=== PATIENT | female | born 1990 | race Caucasian/White ===

== ENCOUNTER 2022-07-21 08:47 | Inpatient (IN) | payer OTHER, SELFPAY ==
[2022-07-21] VITALS (8 sets, daily range): BP systolic 122–157; BP diastolic 80–97; PULSE 83–100; RESP 16–18; TEMP 36.6–37.2; O2SAT 95–98; BMI 49.9
--- NOTE | 2022-07-21 09:01 | ED_ITS ---
HPI - Psych General Chief Complaint: Psychiatric Symptoms Stated Complaint: SEC 12,IRRATIC BEHAVIOR,SEEN IN COMM BY [facility] Time Seen by Provider: 07/21/22 09:00 Source: patient, EMS and other Mode of arrival: EMS History of Present Illness HPI Narrative: 31-year-old female with unknown medical and psychiatric history presents to the ER from [facility] office, on a Section 12 inpatient psychiatric bed search. [facility] called to report her section 12 includes delusional, erratic, bizarre behavior, fleeting thoughts, psychosis with history of unspecified schizophrenia and other psychiatric disorders.? She is difficult to obtain a history from. She is tearful but will not elaborate why she is here. Onset (ago): unknown Relieving factors: none Exacerbating factors: none Associated symptoms: denies other symptoms Treatments prior to arrival: placed on mental health hold Related Data Allergies Allergy/AdvReac Type Severity Reaction Status Date / Time hydroxychloroquine Allergy Unknown Verified 07/21/22 09:46 seafood Allergy Unknown Uncoded 07/21/22 09:46 Review of Systems Review of Systems: Yes Unobtainable due to mental condition and Unobtainable due to mental status [facility] Social History Social History (System 07/21/22 @ 09:46 by Elvia Youssef) Advance Directives: No Physical Exam Vital Signs: Vital Signs: Last Vital Signs Temp 98.3 F 07/21/22 09:08 Pulse 88 07/21/22 09:08 Resp 16 07/21/22 09:08 BP 122/83 07/21/22 09:08 Pulse Ox 88 L 07/21/22 09:08 O2 Del Method 07/21/22 09:08 BMI result Body Mass Index 49.9 Appearance: Alert. Oriented X3. No acute distress. Eyes: Pupils equal, round and reactive to light. ENT: Pharynx normal. Neck: Normal inspection. Neck supple. CVS: Normal heart rate and rhythm. Pulses normal. Respiratory: No respiratory distress. Breath sounds normal. Abdomen: Obese, Soft and nontender. +BS x4 Skin: Skin warm and dry. Normal skin color. Normal skin turgor. No rashes. Extremities: No lower extremity edema. Neuro/psych: Oriented X 3. No motor deficit. No sensory deficit. CN II-XII grossly intact. steady gait. makes brief eye contact, tearful, does not answer questions appropriately. stares off into space. Course Course Course Narrative: 31-year-old female with a history of unspecified schizophrenia in the past per N presents to the ER on a section 12 inpatient bed search from the community. Unable to get an accurate history on the patient. She appears to be in acute psychosis. She will require inpatient admission. Basic medical workup ordered with plans to admit once medically cleared. Reevaluation(s) Reevaluation #1: Urinalysis is negative for infection and . U tox is negative. Declining blood work at this time. Will plan to admit for psychiatric care. Medical Decision Making Lab Data Labs: Lab Results 07/21/22 07/21/22 07/21/22 Range/Units 09:41 10:06 10:06 Urine Color Yellow Urine Appearance Clear Urine pH 6.0 (5.0-9.0) Ur Specific [place] <= 1.005 (1.005-1.025) Urine Protein Negative (Neg-Trace) mg/dL Urine Glucose (UA) Negative (Negative) mg/dL Urine Ketones Negative (Negative) mg/dL Urine Blood Negative (Negative) Urine Nitrite Negative (Negative) Ur Leukocyte Esterase Negative (Negative) Urine Test NEGATIVE (NEGATIVE) Urine Opiates Screen (Not Detect) Urine Fentanyl Screen (Not Detect) Ur Barbiturates Screen (Not Detect) Ur Phencyclidine Scrn (Not Detect) Ur Amphetamines Screen (Not Detect) U Benzodiazepines Scrn (Not Detect) Urine Cocaine Screen (Not Detect) U Marijuana (THC) Screen (Not Detect) Influenza Type A (PCR) NEGATIVE (Negative) Influenza Type B (PCR) NEGATIVE (Negative) RSV RNA Qual (PCR) NEGATIVE (Negative) SARS-CoV-2 RNA (RT-PCR) NEGATIVE (Negative) 07/21/22 Range/Units 10:06 Urine Color Urine Appearance Urine pH (5.0-9.0) Ur Specific [place] (1.005-1.025) Urine Protein (Neg-Trace) mg/dL Urine Glucose (UA) (Negative) mg/dL Urine Ketones (Negative) mg/dL Urine Blood (Negative) Urine Nitrite (Negative) Ur Leukocyte Esterase (Negative) Urine Test (NEGATIVE) Urine Opiates Screen Not Detected (Not Detect) Urine Fentanyl Screen Not Detected (Not Detect) Ur Barbiturates Screen Not Detected (Not Detect) Ur Phencyclidine Scrn Not Detected (Not Detect) Ur Amphetamines Screen Not Detected (Not Detect) U Benzodiazepines Scrn Not Detected (Not Detect) Urine Cocaine Screen Not Detected (Not Detect) U Marijuana (THC) Screen Not Detected (Not Detect) Influenza Type A (PCR) (Negative) Influenza Type B (PCR) (Negative) RSV RNA Qual (PCR) (Negative) SARS-CoV-2 RNA (RT-PCR) (Negative) Discharge Plan Discharge Clinical Impression: Acute psychosis Patient Disposition: Admitted As Inpatient
--- NOTE | 2022-07-21 09:25 | PC.NURSE ---
PT WITH SKIN RASH ON PALMS OF HANDS AND SHINS
[2022-07-21 10:19] LABS: UPreg QC Valid YES; Urine Pregnancy NEGATIVE (NEGATIVE)
[2022-07-21 10:20] LABS: Appearance Urine Clear; Color Urine Yellow; Glucose Urine UA Negative (Negative); Leukocyte Esterase Urine Negative (Negative); Nitrite Urine Negative (Negative); Specific Gravity - Urine <= 1.005 (1.005-1.025); Urine Blood Negative (Negative); Urine Ketones Negative (Negative); Urine Protein Negative (Neg-Trace)
[2022-07-21 10:31] LABS: Amphetamine Screen Urine Not Detected (Not Detect); Barbiturates, Urine Not Detected (Not Detect); Benzodiazepines Screen Urine Not Detected (Not Detect); Cannabinoid Screen Urine Not Detected (Not Detect); Cocaine Screen Urine Not Detected (Not Detect); Fentanyl, urine Not Detected (Not Detect); Opiate Screen Urine Not Detected (Not Detect); Phencyclidine Screen Urine Not Detected (Not Detect)
[2022-07-21 10:34] LABS: Influenza A PCR NEGATIVE (Negative); Influenza B PCR NEGATIVE (Negative); Resp Syncy Virus RNA Qual PCR NEGATIVE (Negative); SARS COV2 PCR INHOUSE NEGATIVE (Negative)
--- NOTE | 2022-07-21 11:23 | PC.NURSE ---
PT IS ASKING FOR A DIAPER, WALKING AROUND POD WITH BLANKET OVER HER HEAD. KEEPS ASKING IF DIANE HAS CALLED REPETITIVELY.
--- NOTE | 2022-07-21 12:35 | PC.NURSE ---
PT GOES FROM PERIODS OF CRYING TO BEING OVERACTIVE AND HYPER VERBAL.
[2022-07-21] MEDS: OLANZapine 5 MG TABLET PO (12:54)
--- NOTE | 2022-07-21 12:56 | PC.NURSE ---
THROWING THINGS REFUSING TO TAKE MEDICATIONS NOT BEING COOPERATIVE.
[2022-07-21] MEDS: LORazepam 2 MG/ML VIAL IM (13:54)
[2022-07-21] MEDS: Haloperidol Lactate 5 MG/ML VIAL IM (13:55)
--- NOTE | 2022-07-21 14:29 | PC.NURSE ---
1355 PT AGITATED DELUSIONAL UNCOOPERATIVE GETTING INCREASINGLY AGGRESSIVE MANIC NEEDED IM MEDICATIONS 1430 PT CALM COOPERATIVE AND IN ROOM AT THIS TIME
--- NOTE | 2022-07-21 15:15 | PC.NURSE ---
Pt restrained chemicially prior to t/w taking report. Pt currently sleeping, resp reg and even. NAD.
--- NOTE | 2022-07-21 15:18 | PC.NURSE ---
Plan to re-attempt blood draw when pt awakens.
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
--- NOTE | 2022-07-21 22:21 | PC.NURSE ---
Will need to complete safety tool in the morning.
[2022-07-22 08:30] VITALS: BP 111/60; PULSE 92; TEMP 37
[2022-07-22 08:34] LABS: MANUAL DIFF FLAG NO
[2022-07-22 08:36] LABS: Basophils Percent Auto 0.4 % (0-2); Eosinophils Absolute Auto 0.2 X10*3/uL (0.0-0.4); Eosinophils Percent Auto 2.1 % (0-4); Hemoglobin 11.1 g/dl (12.0-16.0); Imm Gran Abs Auto 0.04 X10*3/uL (0.00-0.03); Imm Gran Pct Auto 0.4 % (0.0-0.4); Lymphocytes Absolute Auto 2.3 X10*3/uL (1.2-4.9); Lymphocytes Percent Auto 20.6 % (20-40); Mean Corpuscular HGB Conc 30.8 g/dl (31.0-35.0); Mean Corpuscular Hemoglobin 23.8 pg (27.0-33.0); Mean Corpuscular Volume 77.1 fL (80.0-98.0); Mean Platelet Volume 11.6 fL (9.4-12.3); Monocytes Absolute Auto 0.7 X10*3/uL (0.1-1.2); Monocytes Percent Auto 6.2 % (2-11); Neutrophils Absolute Auto 7.9 x10*3/uL (2.0-8.3); Neutrophils Percent Auto 70.3 % (45-73); Platelet Count 286 X10*3/uL (160-400); Red Blood Count 4.67 X10*6/uL (4.20-5.50); Red Cell Distribution Width 15.4 % (11.0-16.0); White Blood Count 11.2 X10*3/uL (4.8-10.8)
[2022-07-22 08:58] LABS: Estimated Average Glucose 103 mg/dL; Hemoglobin A1c % 5.2 %
[2022-07-22 09:07] LABS: Alanine Aminotransferase 18 U/L (0-31); Albumin Level 4.1 g/dL (3.5-5.0); Alkaline Phosphatase 79 U/L (39-117); Anion Gap 13 (12-20); Aspartate Amino Transferase 15 U/L (5-31); Blood Urea Nitrogen 10 mg/dL (9-16); Calcium 8.8 mg/dL (8.4-10.2); Carbon Dioxide 25 mmol/L (22-29); Chloride 106 mmol/L (96-108); Cholesterol 173 mg/dL; Creatinine Clr Calc Pharmacy 139.9; Estimated Glomerular Filt Rate > 60; Glucose Fasting 93 mg/dL (60-99); HDL Cholesterol 27 mg/dL; LDL Cholesterol Calculated 118 mg/dl; Potassium 4.4 mmol/L (3.3-5.1); Sodium 140 mmol/L (135-145); Total Protein 7.4 g/dL (6.5-8.0); Triglycerides 144 mg/dL
[2022-07-22 09:12] LABS: Bilirubin Total 0.9 mg/dL (0.0-1.0)
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
[2022-07-22 18:00] VITALS: BP 127/75; PULSE 82; TEMP 36.2; O2SAT 99
--- NOTE | 2022-07-22 20:01 | HO.PM.IMCN ---
History of Present Illness Data of Consult Service Date: 07/22/22 Primary Care Provider: Unknown Physician HPI Reason for consult: Lesions on hands, legs, feet Pt is a 31-year-old female with a PMH significant for unspecified schizophrenia and psoriasis who is seen for complaints of lesions on her hands, legs, feet, and torso. Pt states she was diagnosed with psoriasis years ago and originally on Humira but switched to Enbrel. Pt has not seen her ruling machine feeder for at least a couple of years, since before COVID. Current lesions have been particularly bothered her for the past few weeks. Pt notes one lesion on her right suprapubic region filled will pus a couple of weeks ago and started draining. Notes her lesions can be pruritic, particularly if she starts itching them. Has intermittently, but not consistently, tried lotion on her hands are feet which has helped some. Pt denies F/C, N/V. No chest pain/pressure, SOB. Review of Systems Review of Systems: Multiple lesions on hands, feet, and torso, occasionally pruritic Abscess on right suprapubic region that was draining clear fluid a few weeks ago No [facility], [facility] Medical History Post traumatic stress disorder (PTSD) Social History Household Members: Family and Children Do you presently have visiting nurse or other home services: No Unable to assess alcohol history related to: Unknown Patient Tobacco Use Status: Never used Tobacco Smoked in Last 30 Days: No e-Cigarette/Vaping Use: Former Use Patient Interested in Nicotine Replacement: No (Pt refused) Patient Given Instructions on How to Stop Smoking: No Use of substances other than those prescribed or required for medical reasons: Yes Substance Use Type: Marijuana Substance Use Frequency: Occasionally Currently Displaying Signs/Symptoms of Drug Intoxication Withdrawal: No Any prior treatment program specific to substance use: No Have you been hit, kicked, punched, or otherwise hurt by someone within the past year? If so, by whom?: No Do you feel safe in your current relationship?: No Current Relationship Is there a partner from a previous relationship who is making you feel unsafe now?: No Are you made to feel afraid or neglected: No Advance Directives: No Do you have thoughts of harming others: None Do you have a plan to hurt others: No Plan Recently lost weight without trying: No Patient : No : No Meds Allergies Allergy/AdvReac Type Severity Reaction Status Date / Time hydroxychloroquine Allergy Unknown Verified 07/21/22 09:46 seafood Allergy Unknown Uncoded 07/21/22 09:46 Active Medications: Current Medications Acetaminophen (Acetaminophen 325 Mg Tablet) 650 mg PO Q6H PRN PRN Reason: Headache/Pain Mild Scale (1-3) Al Hydroxide/Mg Hydroxide (Magnesium Hydrox/Alum Hydrox 30 Ml Oral.Susp) 30 ml PO Q6H PRN PRN Reason: Heartburn/Nausea Diphenhydramine HCl (Diphenhydramine Hcl 25 Mg Capsule) 50 mg PO Q4H PRN PRN Reason: agitation Haloperidol (Haloperidol 5 Mg Tablet) 5 mg PO Q4H PRN PRN Reason: agitation Hydroxyzine HCl (Hydroxyzine Hcl 25 Mg Tablet) 25 mg PO Q6H PRN PRN Reason: Anxiety Levothyroxine Sodium (Levothyroxine Sodium 112 Mcg Tablet) 112 mcg PO DAILY@0600 CLIFF Lorazepam (Lorazepam 1 Mg Tablet) 2 mg PO Q4H PRN PRN Reason: agitation Magnesium Hydroxide (Milk Of Magnesia 30 Ml Oral.Susp) 30 ml PO DAILY PRN PRN Reason: Constipation Nicotine Polacrilex (Nicotine Polacrilex 2 Mg Gum) 4 mg BUCCAL Q2H PRN PRN Reason: Nicotine Cravings Trazodone HCl (Trazodone Hcl 50 Mg Tablet) 50 mg PO BEDTIME PRN PRN Reason: Insomnia Physical Exam Vital Signs and Narrative: Vital Signs: Last Vital Signs Temp 98.6 F 07/22/22 08:30 Pulse 92 07/22/22 08:30 Resp 17 07/21/22 20:20 BP 111/60 07/22/22 08:30 Pulse Ox 95 07/21/22 20:20 O2 Del Method 07/21/22 20:20 BMI result Body Mass Index 49.9 Constitutional: Alert, in no acute distress. Mental Status: Oriented to person, place and time. Eyes: Pupils are equal, round, and reactive to light. Ear, Nose, and Throat: Oropharynx clear, mucous membranes moist. Ears and nose without deformities. Trachea midline. Respiratory: Clear to auscultation bilaterally. No wheezing, rales, or rhonchi. Cardiovascular: S1, S2 regular. No murmurs, rubs, or gallops. Gastrointestinal: Abdomen soft, non-tender, non-distended. Normal bowel sounds. Neurologic: Cranial nerves II-XI are grossly intact. No focal neurological deficits. Moves all extremities spontaneously. Skin: Multiple psoriatic outbreaks -- on back, stomach, extensor surfaces of elbows, palms of hands, feet. 7mm lesion on right suprapubic region with underlying induration, healed over. No erythema, warmth, or drainage. Musculoskeletal: No cyanosis or clubbing. Extremities: No edema. Psychiatric: Normal mood and affect. Results Labs CBC and Chem 7: 07/22/22 08:07/22/22 08:27 Labs: Laboratory Results - last 24 hr 07/22/22 07/22/22 07/22/22 08:27 08:27 08:27 MCV 77.1 L MCH 23.8 L MCHC 30.8 L RDW 15.4 Plt Count 286 MPV 11.6 Immature Gran % (Auto) 0.4 Neut % (Auto) 70.3 Lymph % (Auto) 20.6 [place] % (Auto) 6.2 Eos % (Auto) 2.1 Baso % (Auto) 0.4 Lymph # (Auto) 2.3 [place] # (Auto) 0.7 Eos # (Auto) 0.2 Baso # (Auto) 0.0 Abs Immat Gran (auto) 0.04 H Absolute Neuts (auto) 7.9 Absolute Nucleated RBC 0.000 Nucleated RBC % (auto) 0.0 Anion Gap 13 Estim Creat Clear Calc 139.9 Estimated GFR > 60 Fasting Glucose 93 Estimat Average Glucose 103 Hemoglobin A1c % 5.2 Calcium 8.8 Total Bilirubin 0.9 AST 15 ALT 18 Alkaline Phosphatase 79 Total Protein 7.4 Albumin 4.1 Triglycerides 144 Cholesterol 173 LDL Cholesterol, Calc 118 HDL Cholesterol 27 Assessment and Plan (1) Psoriasis: Status: Acute Plan Pt is a 31-year-old female with a PMH significant for unspecified schizophrenia and psoriasis who is seen for complaints of lesions on her hands, legs, feet, and torso. # psoriasis -- pt has a history of psoriasis, hasn't seen PCP/ruling machine feeder since before COVID -- was on Humira but changed to Enbrel; hasn't taken any treatments for over two years -- pt's outbreak is too widespread for topicals; biologics indicated, which need a specialist to prescribe -- Eucerin bid to affected areas, especially hands and feet which are dry and cracked -- f/u with ruling machine feeder outpatient to reestablish psoriasis care # abscess of suprapubic area, resolved -- area no longer draining, no erythema, no obvious sign of infection; healed over -- no fluctuance, no need for I&D -- pt to monitor and contact us if fills with pus/starts draining again # leukocytosis -- WBC mildly elevated at 11.2 -- no obvious source of infection -- possibly secodary to psoriasis outbreak Thank you for allowing me to participate in the care of this patient. Please let me know if there are any future questions or concerns. Time Spent With Patient Time: Total time managing care of this patient today ____ minutes.
[2022-07-22] MEDS: Nicotine Polacrilex 2 MG GUM 4 MG BUCCAL (23:21)
[2022-07-23] MEDS: Levothyroxine Sodium 112 MCG TABLET PO (05:21)
[2022-07-23 08:52] VITALS: BP 128/59; PULSE 86; TEMP 36.6
[2022-07-23] MEDS: LORazepam 1 MG TABLET 2 MG PO (11:03)
[2022-07-23] MEDS: Mineral Oil/Petrolatum,White 106 GM Tube 1 APPL TOPICAL ×2 (11:42→22:16)
[2022-07-23] MEDS: HaloperidoL 5 MG TABLET PO (12:08)
--- NOTE | 2022-07-23 12:09 | PC.NURSE ---
pt given Ativan 2mg in separate doses, initially accepted only 1mg, then later accepted the other mg along with Haldol, all PO for agitation prn
--- NOTE | 2022-07-23 16:29 | HO.PSYCHPN ---
Subjective Subjective Date of Service: 07/23/22 Reason For Visit: disorganized Interim History: Discussed her concerns about the changes she perceives in her child and her child's response to her. Describes feeling pulled in many different directions. Discussed how she deals with conflict. Medication Compliance: Yes Side effects from medications: No Attending Groups: Intermittent Review of Systems Acute medical concerns: No Medical Review of Systems: unchanged Mental Status Exam Mental Status Exam Narrative: Pt is alert and oriented; behavior is cooperative, friendly and calm; patient is not in distress; dressed in casual attire with unkempt hair but adequate hygiene; mood is described as ok and affect anxious; eye contact appropriate; Speech is normal rate, volume and prosody and not pressured; no psychomotor agitation/retardation present; thought process is goal directed; Thought content is on why she's in hospital; otherwise pertinent to relevant topics; some paranoid thinking; denies any SI/HI or any hx of attempt. Denies AVH; Patients insight and judgment are impaired. Diagnostics Vital Signs (24Hr): Vital Signs - 24 hr 07/22/22 18:00 07/23/22 08:52 Temperature 97.1 F 97.8 F Pulse Rate 82 86 Blood Pressure 127/75 128/59 L Pulse Oximetry 99 Oxygen Delivery Method Room Air BMI result Body Mass Index 49.9 Labs Results: 07/22/22 08:27 07/22/22 08:27 Labs: Laboratory Results - last 48 hr 07/22/22 07/22/22 07/22/22 08:27 08:27 08:27 WBC 11.2 H RBC 4.67 Hgb 11.1 L Hct 36.0 L MCV 77.1 L MCH 23.8 L MCHC 30.8 L RDW 15.4 Plt Count 286 MPV 11.6 Immature Gran % (Auto) 0.4 Neut % (Auto) 70.3 Lymph % (Auto) 20.6 [place]he % (Auto) 6.2 Eos % (Auto) 2.1 Baso % (Auto) 0.4 Lymph # (Auto) 2.3 [place]he # (Auto) 0.7 Eos # (Auto) 0.2 Baso # (Auto) 0.0 Abs Immat Gran (auto) 0.04 H Absolute Neuts (auto) 7.9 Absolute Nucleated RBC 0.000 Nucleated RBC % (auto) 0.0 Sodium 140 Potassium 4.4 Chloride 106 Carbon Dioxide 25 Anion Gap 13 BUN 10 Creatinine 0.83 Estim Creat Clear Calc 139.9 Estimated GFR > 60 Fasting Glucose 93 Estimat Average Glucose 103 Hemoglobin A1c % 5.2 Calcium 8.8 Total Bilirubin 0.9 AST 15 ALT 18 Alkaline Phosphatase 79 Total Protein 7.4 Albumin 4.1 Triglycerides 144 Cholesterol 173 LDL Cholesterol, Calc 118 HDL Cholesterol 27 Medications Medications Current Medications Acetaminophen (Acetaminophen 325 Mg Tablet) 650 mg PO Q6H PRN PRN Reason: Headache/Pain Mild Scale (1-3) Al Hydroxide/Mg Hydroxide (Magnesium Hydrox/Alum Hydrox 30 Ml Oral.Susp) 30 ml PO Q6H PRN PRN Reason: Heartburn/Nausea Diphenhydramine HCl (Diphenhydramine Hcl 25 Mg Capsule) 50 mg PO Q4H PRN PRN Reason: agitation Haloperidol (Haloperidol 5 Mg Tablet) 5 mg PO Q4H PRN PRN Reason: agitation Last Admin: 07/23/22 12:08 Dose: 5 mg Hydroxyzine HCl (Hydroxyzine Hcl 25 Mg Tablet) 25 mg PO Q6H PRN PRN Reason: Anxiety Levothyroxine Sodium (Levothyroxine Sodium 112 Mcg Tablet) 112 mcg PO DAILY@0600 [facility] Last Admin: 07/23/22 05:21 Dose: 112 mcg Lorazepam (Lorazepam 1 Mg Tablet) 2 mg PO Q4H PRN PRN Reason: agitation Last Admin: 07/23/22 11:03 Dose: 2 mg Magnesium Hydroxide (Milk Of Magnesia 30 Ml Oral.Susp) 30 ml PO DAILY PRN PRN Reason: Constipation Multi-Ingred Cream/Lotion/Oil/Oint (Mineral Oil/Petrolatum,White 106 Gm Tube) 1 appl TOPICAL BID [facility]; Protocol Last Admin: 07/23/22 11:42 Dose: 1 appl Nicotine Polacrilex (Nicotine Polacrilex 2 Mg Gum) 4 mg BUCCAL Q2H PRN PRN Reason: Nicotine Cravings Last Admin: 07/22/22 23:21 Dose: 4 mg Trazodone HCl (Trazodone Hcl 50 Mg Tablet) 50 mg PO BEDTIME PRN PRN Reason: Insomnia Allergies Allergies Allergy/AdvReac Type Severity Reaction Status Date / Time hydroxychloroquine Allergy Unknown Verified 07/21/22 09:46 seafood Allergy Unknown Uncoded 07/21/22 09:46 Assessment & Plan Assessment & Plan (1) Psychotic disorder: Status: Suspected Code(s): F29 - Unspecified psychosis not due to a substance or known physiological condition (2) Post traumatic stress disorder (PTSD): Status: Acute Code(s): F43.10 - Post-traumatic stress disorder, unspecified Plan pt is a 31 yo female who works for [employer] with hx of ptsd and some disorganized behavior who presents to ED at [facility]. Over the last 3-4 weeks, she's presented to ED 3x for bizarre behavior.? -pt has PTSD which is very likely contributing to her symptoms; it's possible she may be having dissociative episodes which would help explain some of her recent behaviors (showing up in her fathers room naked). -pt has some paranoid thinking as well and implies she is experiencing some hallucinations. -Patient works for [employer] and maybe very anxious about disclosing symptoms -likely patient would benefit from SSRI for ptsd; she may also very well benefit from low dose antipsychotic PLAN: cv q15min checks pt currently refuses medications (other than levothyroxine) Levothyroxine 112 mcg daily collateral needed 07/23/22 Continue current plan of care Patient educated on: medication risk/benefits and therapeutic strategies Informed Consent: understands and further education needed Reason for contiued inpatient stay Substantial Risk for: rapid decompensation Time Spent With Patient Time: Total time managing care of this patient today _35___ minutes.
[2022-07-23 18:00] VITALS: BP 129/60; PULSE 85; RESP 16; TEMP 36.7; O2SAT 97
[2022-07-23 23:05] LABS: Influenza A PCR NEGATIVE (Negative); Influenza B PCR NEGATIVE (Negative); Resp Syncy Virus RNA Qual PCR NEGATIVE (Negative); SARS COV2 PCR INHOUSE NEGATIVE (Negative)
[2022-07-24] MEDS: Levothyroxine Sodium 112 MCG TABLET PO (03:02)
[2022-07-24] MEDS: diphenhydrAMINE HCL 25 MG CAPSULE 50 MG PO (03:07)
[2022-07-24 07:45] VITALS: BP 134/86; PULSE 85; RESP 16; TEMP 36.6; O2SAT 98
--- NOTE | 2022-07-24 11:28 | HO.PSYCHPN ---
Subjective Subjective Date of Service: 07/24/22 Reason For Visit: disorganized Subjective Notes: Conditional Voluntary Healthcare Proxy: No Guardianship: No Interim History: Patient was seen and discussed in rounds today. Records and plans were reviewed. Today she wanted to talk about some past issues which we did briefly. She also states that the Benadryl last night was very helpful with her sleep. She states that she has been constipated and has not had a bowel movement in several days and I ordered Colace 100 mg b.i.d.. No SI. Eating and sleeping adequately now. No other changes were made Medication Compliance: Yes Side effects from medications: No Review of Systems Review of Systems Multiple lesions on hands, feet, and torso, occasionally pruritic Abscess on right suprapubic region that was draining clear fluid a few weeks ago No F/C, N/V Yes all other systems are reviewed and are negative Mental Status Exam Mental Status Exam Narrative: In today's visit she is alert, oriented and pleasant and interactive. Normal speech. Good eye contact. Affect is appropriate and contained. No SI. No signs of psychosis. Cognitively intact. Judgment is intact Diagnostics Vital Signs (24Hr): Vital Signs - 24 hr 07/23/22 18:00 07/24/22 07:45 Temperature 98.0 F 97.8 F Pulse Rate 85 85 Respiratory Rate 16 16 Blood Pressure 129/60 134/86 Pulse Oximetry 97 98 Oxygen Delivery Method Room Air Room Air BMI result Body Mass Index 49.9 Labs Results: 07/22/22 08:27 07/22/22 08:27 Labs: Laboratory Results - last 48 hr 07/23/22 22:15 Influenza Type A (PCR) NEGATIVE Influenza Type B (PCR) NEGATIVE RSV RNA Qual (PCR) NEGATIVE SARS-CoV-2 RNA (RT-PCR) NEGATIVE Medications Medications Current Medications Acetaminophen (Acetaminophen 325 Mg Tablet) 650 mg PO Q6H PRN PRN Reason: Headache/Pain Mild Scale (1-3) Al Hydroxide/Mg Hydroxide (Magnesium Hydrox/Alum Hydrox 30 Ml Oral.Susp) 30 ml PO Q6H PRN PRN Reason: Heartburn/Nausea Diphenhydramine HCl (Diphenhydramine Hcl 25 Mg Capsule) 50 mg PO Q4H PRN PRN Reason: agitation Last Admin: 07/24/22 03:07 Dose: 50 mg Haloperidol (Haloperidol 5 Mg Tablet) 5 mg PO Q4H PRN PRN Reason: agitation Last Admin: 07/23/22 12:08 Dose: 5 mg Hydroxyzine HCl (Hydroxyzine Hcl 25 Mg Tablet) 25 mg PO Q6H PRN PRN Reason: Anxiety Levothyroxine Sodium (Levothyroxine Sodium 112 Mcg Tablet) 112 mcg PO DAILY@0600 [facility] Last Admin: 07/24/22 03:02 Dose: 112 mcg Lorazepam (Lorazepam 1 Mg Tablet) 2 mg PO Q4H PRN PRN Reason: agitation Last Admin: 07/23/22 11:03 Dose: 2 mg Magnesium Hydroxide (Milk Of Magnesia 30 Ml Oral.Susp) 30 ml PO DAILY PRN PRN Reason: Constipation Multi-Ingred Cream/Lotion/Oil/Oint (Mineral Oil/Petrolatum,White 106 Gm Tube) 1 appl TOPICAL BID [facility]; Protocol Last Admin: 07/24/22 09:58 Dose: Not Given Nicotine Polacrilex (Nicotine Polacrilex 2 Mg Gum) 4 mg BUCCAL Q2H PRN PRN Reason: Nicotine Cravings Last Admin: 07/22/22 23:21 Dose: 4 mg Trazodone HCl (Trazodone Hcl 50 Mg Tablet) 50 mg PO BEDTIME PRN PRN Reason: Insomnia Allergies Allergies Allergy/AdvReac Type Severity Reaction Status Date / Time hydroxychloroquine Allergy Unknown Verified 07/21/22 09:46 seafood Allergy Unknown Uncoded 07/21/22 09:46 Assessment & Plan Assessment & Plan (1) Psychotic disorder: Status: Suspected Code(s): F29 - Unspecified psychosis not due to a substance or known physiological condition (2) Post traumatic stress disorder (PTSD): Status: Acute Code(s): F43.10 - Post-traumatic stress disorder, unspecified Plan pt is a 31 yo female who works for [employer] with hx of ptsd and some disorganized behavior who presents to ED at [facility]. Over the last 3-4 weeks, she's presented to ED 3x for bizarre behavior.? -pt has PTSD which is very likely contributing to her symptoms; it's possible she may be having dissociative episodes which would help explain some of her recent behaviors (showing up in her fathers room naked). -pt has some paranoid thinking as well and implies she is experiencing some hallucinations. -Patient works for [employer] and maybe very anxious about disclosing symptoms -likely patient would benefit from SSRI for ptsd; she may also very well benefit from low dose antipsychotic PLAN: cv q15min checks pt currently refuses medications (other than levothyroxine) Levothyroxine 112 mcg daily collateral needed 07/23/22 Continue current plan of care 07/24: Continue current regimen and plans. Added Colace 100 mg b.i.d. Reason for contiued inpatient stay Substantial Risk for: med/psych decompensation Time Spent With Patient Time: Total time managing care of this patient today ____ minutes.
[2022-07-24] MEDS: Docusate Sodium 100 MG CAPSULE PO (13:02)
[2022-07-24 21:30] VITALS: BP 137/70; PULSE 81; TEMP 35.8; O2SAT 98
[2022-07-25] MEDS: Acetaminophen 325 MG TABLET 650 MG PO ×3 (00:27→19:53)
[2022-07-25] MEDS: diphenhydrAMINE HCL 25 MG CAPSULE 50 MG PO ×2 (00:27→19:53)
[2022-07-25] MEDS: Levothyroxine Sodium 112 MCG TABLET PO (05:01)
[2022-07-25 09:30] VITALS: BP 146/71; PULSE 91; TEMP 36.6; O2SAT 97
[2022-07-25] MEDS: Mineral Oil/Petrolatum,White 106 GM Tube 1 APPL TOPICAL (10:00)
[2022-07-25] MEDS: Docusate Sodium 100 MG CAPSULE PO ×2 (10:00→19:58)
--- NOTE | 2022-07-25 10:10 | HO.PSYCHPN ---
Subjective Subjective Date of Service: 07/25/22 Reason For Visit: disorganized Subjective Notes: Conditional Voluntary Healthcare Proxy: No Guardianship: No Interim History: Patient was seen and discussed in rounds today. Records and plans were reviewed. She had a better day eventually yesterday and has settled down. She became more cooperative. Still has some episodes of irritability and outbursts but doing better overall. Some crying spells. She denies any side effects. No complaints. Eating and sleeping adequately. No changes were made today Medication Compliance: Yes Side effects from medications: No Review of Systems Review of Systems Yes all other systems are reviewed and are negative Mental Status Exam Mental Status Exam Narrative: In today's visit she is alert, oriented and pleasant and interactive. Normal speech. Good eye contact. Affect is appropriate and contained. No SI. No signs of psychosis. Cognitively intact. Judgment is intact Diagnostics Vital Signs (24Hr): Vital Signs - 24 hr 07/24/22 21:30 Temperature 96.4 F L Pulse Rate 81 Blood Pressure 137/70 Pulse Oximetry 98 Oxygen Delivery Method Room Air BMI result Body Mass Index 49.9 Labs Results: 07/22/22 08:27 07/22/22 08:27 Labs: Laboratory Results - last 48 hr 07/23/22 22:15 Influenza Type A (PCR) NEGATIVE Influenza Type B (PCR) NEGATIVE RSV RNA Qual (PCR) NEGATIVE SARS-CoV-2 RNA (RT-PCR) NEGATIVE Medications Medications Current Medications Acetaminophen (Acetaminophen 325 Mg Tablet) 650 mg PO Q6H PRN PRN Reason: Headache/Pain Mild Scale (1-3) Last Admin: 07/25/22 10:04 Dose: 650 mg Al Hydroxide/Mg Hydroxide (Magnesium Hydrox/Alum Hydrox 30 Ml Oral.Susp) 30 ml PO Q6H PRN PRN Reason: Heartburn/Nausea Diphenhydramine HCl (Diphenhydramine Hcl 25 Mg Capsule) 50 mg PO Q4H PRN PRN Reason: agitation Last Admin: 07/25/22 00:27 Dose: 50 mg Docusate Sodium (Docusate Sodium 100 Mg Capsule) 100 mg PO BID [facility] Last Admin: 07/25/22 10:00 Dose: 100 mg Haloperidol (Haloperidol 5 Mg Tablet) 5 mg PO Q4H PRN PRN Reason: agitation Last Admin: 07/23/22 12:08 Dose: 5 mg Hydroxyzine HCl (Hydroxyzine Hcl 25 Mg Tablet) 25 mg PO Q6H PRN PRN Reason: Anxiety Levothyroxine Sodium (Levothyroxine Sodium 112 Mcg Tablet) 112 mcg PO DAILY@0600 [facility] Last Admin: 07/25/22 05:01 Dose: 112 mcg Lorazepam (Lorazepam 1 Mg Tablet) 2 mg PO Q4H PRN PRN Reason: agitation Last Admin: 07/23/22 11:03 Dose: 2 mg Magnesium Hydroxide (Milk Of Magnesia 30 Ml Oral.Susp) 30 ml PO DAILY PRN PRN Reason: Constipation Multi-Ingred Cream/Lotion/Oil/Oint (Mineral Oil/Petrolatum,White 106 Gm Tube) 1 appl TOPICAL BID [facility]; Protocol Last Admin: 07/25/22 10:00 Dose: 1 appl Nicotine Polacrilex (Nicotine Polacrilex 2 Mg Gum) 4 mg BUCCAL Q2H PRN PRN Reason: Nicotine Cravings Last Admin: 07/22/22 23:21 Dose: 4 mg Trazodone HCl (Trazodone Hcl 50 Mg Tablet) 50 mg PO BEDTIME PRN PRN Reason: Insomnia Allergies Allergies Allergy/AdvReac Type Severity Reaction Status Date / Time hydroxychloroquine Allergy Unknown Verified 07/21/22 09:46 seafood Allergy Unknown Uncoded 07/21/22 09:46 Assessment & Plan Assessment & Plan (1) Psychotic disorder: Status: Suspected Code(s): F29 - Unspecified psychosis not due to a substance or known physiological condition (2) Post traumatic stress disorder (PTSD): Status: Acute Code(s): F43.10 - Post-traumatic stress disorder, unspecified Plan pt is a 31 yo female who works for [employer] with hx of ptsd and some disorganized behavior who presents to ED at [facility]. Over the last 3-4 weeks, she's presented to ED 3x for bizarre behavior.? -pt has PTSD which is very likely contributing to her symptoms; it's possible she may be having dissociative episodes which would help explain some of her recent behaviors (showing up in her fathers room naked). -pt has some paranoid thinking as well and implies she is experiencing some hallucinations. -Patient works for [employer] and maybe very anxious about disclosing symptoms -likely patient would benefit from SSRI for ptsd; she may also very well benefit from low dose antipsychotic PLAN: cv q15min checks pt currently refuses medications (other than levothyroxine) Levothyroxine 112 mcg daily collateral needed 07/23/22 Continue current plan of care 07/24: Continue current regimen and plans. Added Colace 100 mg b.i.d. 07/25: Continue current plans and regimen Reason for contiued inpatient stay Substantial Risk for: med/psych decompensation Time Spent With Patient Time: Total time managing care of this patient today ____ minutes.
[2022-07-25 17:17] VITALS: BP 143/73; PULSE 87; TEMP 36.7; O2SAT 96
[2022-07-26] MEDS: Nicotine Polacrilex 2 MG GUM 4 MG BUCCAL ×3 (02:20→22:51)
[2022-07-26 06:00] VITALS: BP 132/76; PULSE 81; RESP 16; TEMP 36.4; O2SAT 100
[2022-07-26] MEDS: Levothyroxine Sodium 112 MCG TABLET PO (06:28)
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
[2022-07-26 18:00] VITALS: BP 141/73; PULSE 87; TEMP 36.4; O2SAT 98
[2022-07-26] MEDS: Milk of Magnesia 30 ML ORAL.SUSP PO (22:50)
[2022-07-26] MEDS: Mineral Oil/Petrolatum,White 106 GM Tube 1 APPL TOPICAL (22:53)
[2022-07-27] MEDS: Levothyroxine Sodium 112 MCG TABLET PO (06:09)
[2022-07-27] MEDS: Docusate Sodium 100 MG CAPSULE PO ×2 (08:27→20:49)
[2022-07-27 08:46] VITALS: BP 132/65; PULSE 77; RESP 18; TEMP 36.8; O2SAT 98
[2022-07-27] MEDS: Mineral Oil/Petrolatum,White 106 GM Tube 1 APPL TOPICAL (10:49)
--- NOTE | 2022-07-27 11:46 | HO.PSYCHPN ---
Subjective Subjective Date of Service: 07/27/22 Reason For Visit: disorganized Interim History: late entry note for pt seen on 07/27/22 pt tearful; she says she knows she is more confused but does not know why and maintains that all of this seems to have started this past thankgiving. Pt denies SI or HI or AVH, but agrees she is not her regular self. She showed underwriter mortgage loan letter from her employer at [employer] reviewing her past recent odd and concerning behavior and that they are temporarily putting her on unpaid leave. Bank Guard discussed with w/ her and other recent concerns for her odd behavior and pt agreed to try Risperdal. equipment maintenance supervisor reviewed risks/side-effects of this medication, including but not limited to TD and prolactinemia; pt asked questions, understood and agreed trial. She shared that she's been afraid of medication but for the first time, she's more afraid of returning to the community feeling this way. Discussed some of her irritable behaviors on the unit and pt again said it's not normal for her, but that she is feeling sensitive and at times that staff is not caring, triggering irritable response. Mental Status Exam Mental Status Exam Narrative: Pt is alert and oriented; behavior is cooperative, tearful; dressed in casual attire with adequate grooming and hygiene; mood is described as ok and affect anxious, tearful; eye contact appropriate; Speech is normal rate, volume and prosody and not pressured; no psychomotor agitation/retardation present; thought process is goal directed but can also be disorganized, not answering question asked; Thought content is on why she's not feeling her regular self; some paranoid thinking; denies any SI/HI or any hx of attempt. Denies AVH; Patients insight and judgment are impaired. Diagnostics Vital Signs (24Hr): Vital Signs - 24 hr 07/27/22 18:00 07/28/22 06:00 Temperature 97.7 F Pulse Rate 83 81 Respiratory Rate 16 18 Blood Pressure 161/81 H 124/58 L Pulse Oximetry 97 Oxygen Delivery Method Room Air Room Air BMI result Body Mass Index 49.9 Labs Results: 07/22/22 08:27 07/22/22 08:27 Labs: Laboratory Results - last 48 hr 07/28/22 07/28/22 10:30 10:30 COVID-19 ([facility]) Negative COVID-19 Clin Com See Note S. pyogenes GrpA [facility] Negative Medications Medications Current Medications Acetaminophen (Acetaminophen 325 Mg Tablet) 650 mg PO Q6H PRN PRN Reason: Headache/Pain Mild Scale (1-3) Last Admin: 07/25/22 19:53 Dose: 650 mg Al Hydroxide/Mg Hydroxide (Magnesium Hydrox/Alum Hydrox 30 Ml Oral.Susp) 30 ml PO Q6H PRN PRN Reason: Heartburn/Nausea Diphenhydramine HCl (Diphenhydramine Hcl 25 Mg Capsule) 50 mg PO Q4H PRN PRN Reason: agitation Last Admin: 07/25/22 19:53 Dose: 50 mg Docusate Sodium (Docusate Sodium 100 Mg Capsule) 100 mg PO BID [facility] Last Admin: 07/28/22 08:26 Dose: 100 mg Escitalopram Oxalate (Escitalopram Oxalate 10 Mg Tablet) 10 mg PO DAILY [facility] Last Admin: 07/28/22 08:26 Dose: 10 mg Haloperidol (Haloperidol 5 Mg Tablet) 5 mg PO Q4H PRN PRN Reason: agitation Last Admin: 07/23/22 12:08 Dose: 5 mg Hydroxyzine HCl (Hydroxyzine Hcl 25 Mg Tablet) 25 mg PO Q6H PRN PRN Reason: Anxiety Levothyroxine Sodium (Levothyroxine Sodium 112 Mcg Tablet) 112 mcg PO DAILY@0600 [facility] Last Admin: 07/28/22 06:33 Dose: 112 mcg Lorazepam (Lorazepam 1 Mg Tablet) 2 mg PO Q4H PRN PRN Reason: agitation Last Admin: 07/23/22 11:03 Dose: 2 mg Magnesium Hydroxide (Milk Of Magnesia 30 Ml Oral.Susp) 30 ml PO DAILY PRN PRN Reason: Constipation Last Admin: 07/26/22 22:50 Dose: 30 ml Multi-Ingred Cream/Lotion/Oil/Oint (Mineral Oil/Petrolatum,White 106 Gm Tube) 1 appl TOPICAL BID [facility]; Protocol Last Admin: 07/28/22 08:27 Dose: 1 appl Nicotine Polacrilex (Nicotine Polacrilex 2 Mg Gum) 4 mg BUCCAL Q2H PRN PRN Reason: Nicotine Cravings Last Admin: 07/26/22 22:51 Dose: 2 mg Risperidone (Risperidone 1 Mg Tablet) 1 mg PO BID [facility] Last Admin: 07/28/22 08:27 Dose: 1 mg Trazodone HCl (Trazodone Hcl 50 Mg Tablet) 50 mg PO BEDTIME PRN PRN Reason: Insomnia Allergies Allergies Allergy/AdvReac Type Severity Reaction Status Date / Time hydroxychloroquine Allergy Unknown Verified 07/21/22 09:46 seafood Allergy Unknown Uncoded 07/21/22 09:46 Assessment & Plan Assessment & Plan (1) Psychotic disorder: Status: Suspected Code(s): F29 - Unspecified psychosis not due to a substance or known physiological condition (2) Post traumatic stress disorder (PTSD): Status: Acute Code(s): F43.10 - Post-traumatic stress disorder, unspecified Plan pt is a 31 yo female who works for [employer] with hx of ptsd and some disorganized behavior who presents to ED at [facility]. Over the last 3-4 weeks, she's presented to ED 3x for bizarre behavior.? -pt has PTSD which is very likely contributing to her symptoms; it's possible she may be having dissociative episodes which would help explain some of her recent behaviors (showing up in her fathers room naked). -pt has some paranoid thinking as well and implies she is experiencing some hallucinations. -Patient works for [employer] and maybe very anxious about disclosing symptoms -likely patient would benefit from SSRI for ptsd; she may also very well benefit from low dose antipsychotic PLAN: cv q15min checks agrees to Risperdal 1mg BID Levothyroxine 112 mcg daily collateral needed 07/23/22 Continue current plan of care 07/24: Continue current regimen and plans. Added Colace 100 mg b.i.d. 07/25: Continue current plans and regimen 07/26: Continue current plans and regimen and initiated Lexapro 10 mg daily. She refused a low-dose Risperdal 07/27 pt amenable to taking medication and starting a trial of risperdal; pt agrees she is not thinking clearly Patient educated on: diagnosis and medication risk/benefits Informed Consent: understands Reason for contiued inpatient stay Substantial Risk for: inability to function Time Spent With Patient Time: Total time managing care of this patient today ____ minutes.
[2022-07-27] MEDS: risperiDONE 1 MG TABLET PO ×2 (12:14→20:49)
[2022-07-27 18:00] VITALS: BP 161/81; PULSE 83; RESP 16; TEMP 36.5; O2SAT 97
--- NOTE | 2022-07-27 18:29 | PC.NURSE ---
Pt signed a 3-day notice up on 07/30/22. , MILAN, and SW aware.
[2022-07-28 06:00] VITALS: BP 124/58; PULSE 81; RESP 18
[2022-07-28] MEDS: Levothyroxine Sodium 112 MCG TABLET PO (06:33)
[2022-07-28] MEDS: Docusate Sodium 100 MG CAPSULE PO ×2 (08:26→19:45)
[2022-07-28] MEDS: Escitalopram Oxalate 10 MG TABLET PO (08:26)
[2022-07-28] MEDS: Mineral Oil/Petrolatum,White 106 GM Tube 1 APPL TOPICAL (08:27)
[2022-07-28] MEDS: risperiDONE 1 MG TABLET PO ×2 (08:27→19:47)
[2022-07-28 10:57] LABS: COVID-19 Test Negative (Negative); IDNOW Serial# BCCEAD1C
[2022-07-28 11:22] LABS: IDNOW Serial# 08D9AD1C; Strep A Nucleic Acid Negative (Negative)
--- NOTE | 2022-07-28 14:42 | HO.PSYCHPN ---
Subjective Subjective Date of Service: 07/28/22 Reason For Visit: disorganized Interim History: Patient reports feeling a little better today. She did vomit last night but does not think it was due to medication. Patient says she does feel Risperdal has been helpful and feels a little calmer and more able to avoid upsetting thoughts. She said it does make her little sleepy and would like it to be made at bedtime if possible. Patient did put in a 3 day notice and feels like she would like to discharge by the end of the week in order to be with her family for new year's. Oral And Maxillofacial Surgeon discussed her recent odd behaviors and patient is ambivalent about how Risperdal might help that but will continue to evaluate. Improved staff/milieu interactions Mental Status Exam Mental Status Exam Narrative: Pt is alert and oriented; behavior is cooperative, calm, friendly; dressed in casual attire with adequate grooming and hygiene; mood is described as good and affect congruent; eye contact appropriate; Speech is normal rate, volume and prosody and not pressured; no psychomotor agitation/retardation present; thought process is goal directed but can also be disorganized, not answering question asked; Thought content working on emotional reactivity; no expressed paranoid thinking; denies any SI/HI or any hx of attempt. Denies AVH; Patients insight and judgment are impaired but improved. Diagnostics Vital Signs (24Hr): Vital Signs - 24 hr 07/27/22 18:00 07/28/22 06:00 Temperature 97.7 F Pulse Rate 83 81 Respiratory Rate 16 18 Blood Pressure 161/81 H 124/58 L Pulse Oximetry 97 Oxygen Delivery Method Room Air Room Air BMI result Body Mass Index 49.9 Labs Results: 07/22/22 08:27 07/22/22 08:27 Labs: Laboratory Results - last 48 hr 07/28/22 07/28/22 10:30 10:30 COVID-19 ([facility]) Negative COVID-19 Clin Com See Note S. pyogenes GrpA [facility] Negative Medications Medications Current Medications Acetaminophen (Acetaminophen 325 Mg Tablet) 650 mg PO Q6H PRN PRN Reason: Headache/Pain Mild Scale (1-3) Last Admin: 07/25/22 19:53 Dose: 650 mg Al Hydroxide/Mg Hydroxide (Magnesium Hydrox/Alum Hydrox 30 Ml Oral.Susp) 30 ml PO Q6H PRN PRN Reason: Heartburn/Nausea Diphenhydramine HCl (Diphenhydramine Hcl 25 Mg Capsule) 50 mg PO Q4H PRN PRN Reason: agitation Last Admin: 07/25/22 19:53 Dose: 50 mg Docusate Sodium (Docusate Sodium 100 Mg Capsule) 100 mg PO BID [facility] Last Admin: 07/28/22 08:26 Dose: 100 mg Escitalopram Oxalate (Escitalopram Oxalate 10 Mg Tablet) 10 mg PO DAILY [facility] Last Admin: 07/28/22 08:26 Dose: 10 mg Haloperidol (Haloperidol 5 Mg Tablet) 5 mg PO Q4H PRN PRN Reason: agitation Last Admin: 07/23/22 12:08 Dose: 5 mg Hydroxyzine HCl (Hydroxyzine Hcl 25 Mg Tablet) 25 mg PO Q6H PRN PRN Reason: Anxiety Levothyroxine Sodium (Levothyroxine Sodium 112 Mcg Tablet) 112 mcg PO DAILY@0600 [facility] Last Admin: 07/28/22 06:33 Dose: 112 mcg Lorazepam (Lorazepam 1 Mg Tablet) 2 mg PO Q4H PRN PRN Reason: agitation Last Admin: 07/23/22 11:03 Dose: 2 mg Magnesium Hydroxide (Milk Of Magnesia 30 Ml Oral.Susp) 30 ml PO DAILY PRN PRN Reason: Constipation Last Admin: 07/26/22 22:50 Dose: 30 ml Multi-Ingred Cream/Lotion/Oil/Oint (Mineral Oil/Petrolatum,White 106 Gm Tube) 1 appl TOPICAL BID [facility]; Protocol Last Admin: 07/28/22 08:27 Dose: 1 appl Nicotine Polacrilex (Nicotine Polacrilex 2 Mg Gum) 4 mg BUCCAL Q2H PRN PRN Reason: Nicotine Cravings Last Admin: 07/26/22 22:51 Dose: 2 mg Risperidone (Risperidone 1 Mg Tablet) 1 mg PO BID [facility] Last Admin: 07/28/22 08:27 Dose: 1 mg Trazodone HCl (Trazodone Hcl 50 Mg Tablet) 50 mg PO BEDTIME PRN PRN Reason: Insomnia Allergies Allergies Allergy/AdvReac Type Severity Reaction Status Date / Time hydroxychloroquine Allergy Unknown Verified 07/21/22 09:46 seafood Allergy Unknown Uncoded 07/21/22 09:46 Assessment & Plan Assessment & Plan (1) Psychotic disorder: Status: Suspected Code(s): F29 - Unspecified psychosis not due to a substance or known physiological condition (2) Post traumatic stress disorder (PTSD): Status: Acute Code(s): F43.10 - Post-traumatic stress disorder, unspecified Plan pt is a 31 yo female who works for [employer] with hx of ptsd and some disorganized behavior who presents to ED at [facility]. Over the last 3-4 weeks, she's presented to ED 3x for bizarre behavior.? -pt has PTSD which is very likely contributing to her symptoms; it's possible she may be having dissociative episodes which would help explain some of her recent behaviors (showing up in her fathers room naked). -pt has some paranoid thinking as well and implies she is experiencing some hallucinations. -Patient works for [employer] and maybe very anxious about disclosing symptoms -likely patient would benefit from SSRI for ptsd; she may also very well benefit from low dose antipsychotic 07/23/22 Continue current plan of care 07/24: Continue current regimen and plans. Added Colace 100 mg b.i.d. 07/25: Continue current plans and regimen 07/26: Continue current plans and regimen and initiated Lexapro 10 mg daily. She refused a low-dose Risperdal 07/27 pt amenable to taking medication and starting a trial of risperdal; pt agrees she is not thinking clearly 07/28 patient thinks she is doing better and of note has had no negative interactions with staff; feels more calm and less tossed around by upsetting past events. PLAN: cv q15min checks Continue Risperdal 1mg BID; will perhaps move dose to bedtime Levothyroxine 112 mcg daily collateral needed Patient educated on: diagnosis and medication risk/benefits Informed Consent: understands Reason for contiued inpatient stay Substantial Risk for: stable for discharge Time Spent With Patient Time: Total time managing care of this patient today ____ minutes.
[2022-07-28 18:00] VITALS: BP 135/63; PULSE 84; RESP 18; TEMP 36.9; O2SAT 97
[2022-07-28] MEDS: traZODone HCL 50 MG TABLET PO (19:45)
[2022-07-29 06:00] VITALS: BP 132/69; PULSE 69; RESP 18; TEMP 37; O2SAT 97
[2022-07-29] MEDS: Levothyroxine Sodium 112 MCG TABLET PO (06:09)
[2022-07-29] MEDS: Escitalopram Oxalate 10 MG TABLET PO (07:51)
[2022-07-29] MEDS: Mineral Oil/Petrolatum,White 106 GM Tube 1 APPL TOPICAL (07:51)
[2022-07-29] MEDS: Docusate Sodium 100 MG CAPSULE PO ×2 (07:51→22:36)
--- NOTE | 2022-07-29 10:29 | P.PNPSI_ITS ---
Subjective Subjective Date of Service: 07/29/22 Reason For Visit: disorganized Interim History: Patient reports feeling better overall. She will continue taking Risperdal at bedtime; although taking Lexapro for few days decided to discontinue it saying she only wants to be on 1 medication at a time for now. Patient agrees she had odd behaviors that were very out of character for her and only started this past June. Discussed possibilities which include PTSD and dissociative episodes verses substance induced. Patient accepts that etiology is not clear for now. She however is clear that she needs therapy and has issues she needs help and guidance with. Patient shared that she has a historical troubles with having boundaries with others and wants to improve this. She wants this post discharge. Patient 3 day notice is due tomorrow and she feels ready for discharge. Mental Status Exam Mental Status Exam Narrative: Pt is alert and oriented; behavior is cooperative, calm, friendly; dressed in casual attire with adequate grooming and hygiene; mood is described as good and affect congruent; eye contact appropriate; Speech is normal rate, volume and prosody and not pressured; no psychomotor agitation/retardation present; thought process is goal directed and organized; Thought content working on emotional reactivity; no expressed paranoid thinking; denies any SI/HI or any hx of attempt. Denies AVH; Patients insight and judgment are improved and fair. Diagnostics Vital Signs (24Hr): Vital Signs - 24 hr 07/28/22 18:00 07/29/22 06:00 Temperature 98.5 F 98.6 F Pulse Rate 84 69 Respiratory Rate 18 18 Blood Pressure 135/63 132/69 Pulse Oximetry 97 97 Oxygen Delivery Method Room Air Room Air BMI result Body Mass Index 49.9 Labs Results: 07/22/22 08:27 07/22/22 08:27 Labs: Laboratory Results - last 48 hr 07/28/22 07/28/22 10:30 10:30 COVID-19 ([facility]) Negative COVID-19 Clin Com See Note S. pyogenes GrpA [facility] Negative Medications Medications Current Medications Acetaminophen (Acetaminophen 325 Mg Tablet) 650 mg PO Q6H PRN PRN Reason: Headache/Pain Mild Scale (1-3) Last Admin: 07/25/22 19:53 Dose: 650 mg Al Hydroxide/Mg Hydroxide (Magnesium Hydrox/Alum Hydrox 30 Ml Oral.Susp) 30 ml PO Q6H PRN PRN Reason: Heartburn/Nausea Diphenhydramine HCl (Diphenhydramine Hcl 25 Mg Capsule) 50 mg PO Q4H PRN PRN Reason: agitation Last Admin: 07/25/22 19:53 Dose: 50 mg Docusate Sodium (Docusate Sodium 100 Mg Capsule) 100 mg PO BID [facility] Last Admin: 07/29/22 07:51 Dose: 100 mg Escitalopram Oxalate (Escitalopram Oxalate 10 Mg Tablet) 10 mg PO DAILY [facility] Last Admin: 07/29/22 07:51 Dose: 10 mg Hydroxyzine HCl (Hydroxyzine Hcl 25 Mg Tablet) 25 mg PO Q6H PRN PRN Reason: Anxiety Levothyroxine Sodium (Levothyroxine Sodium 112 Mcg Tablet) 112 mcg PO DAILY@0600 [facility] Last Admin: 07/29/22 06:09 Dose: 112 mcg Magnesium Hydroxide (Milk Of Magnesia 30 Ml Oral.Susp) 30 ml PO DAILY PRN PRN Reason: Constipation Last Admin: 07/26/22 22:50 Dose: 30 ml Multi-Ingred Cream/Lotion/Oil/Oint (Mineral Oil/Petrolatum,White 106 Gm Tube) 1 appl TOPICAL BID [facility]; Protocol Last Admin: 07/29/22 07:51 Dose: 1 appl Nicotine Polacrilex (Nicotine Polacrilex 2 Mg Gum) 4 mg BUCCAL Q2H PRN PRN Reason: Nicotine Cravings Last Admin: 07/26/22 22:51 Dose: 2 mg Risperidone (Risperidone 2 Mg Tablet) 2 mg PO BEDTIME [facility] Trazodone HCl (Trazodone Hcl 50 Mg Tablet) 50 mg PO BEDTIME PRN PRN Reason: Insomnia Last Admin: 07/28/22 19:45 Dose: 50 mg Allergies Allergies Allergy/AdvReac Type Severity Reaction Status Date / Time hydroxychloroquine Allergy Unknown Verified 07/21/22 09:46 seafood Allergy Unknown Uncoded 07/21/22 09:46 Assessment & Plan Assessment & Plan (1) Psychotic disorder: Status: Suspected Code(s): F29 - Unspecified psychosis not due to a substance or known physiological condition (2) Post traumatic stress disorder (PTSD): Status: Acute Code(s): F43.10 - Post-traumatic stress disorder, unspecified Plan pt is a 31 yo female who works for [employer] with hx of ptsd and some disorganized behavior who presents to ED at fathers behest. Over the last 3-4 weeks, she's presented to ED 3x for bizarre behavior.? -pt has PTSD which is very likely contributing to her symptoms; it's possible she may be having dissociative episodes which would help explain some of her recent behaviors (showing up in her fathers room naked). -pt has some paranoid thinking as well and implies she is experiencing some hallucinations. -Patient works for [employer] and maybe very anxious about disclosing symptoms -likely patient would benefit from SSRI for ptsd; she may also very well benefit from low dose antipsychotic 07/23/22 Continue current plan of care 07/24: Continue current regimen and plans. Added Colace 100 mg b.i.d. 07/25: Continue current plans and regimen 07/26: Continue current plans and regimen and initiated Lexapro 10 mg daily. She refused a low-dose Risperdal 07/27 pt amenable to taking medication and starting a trial of risperdal; pt agrees she is not thinking clearly 07/28 patient thinks she is doing better and of note has had no negative interactions with staff; feels more calm and less tossed around by upsetting past events. 07/29 patient feels that she is doing better. Three day notice is due tomorrow and she feels ready to go home. She will continue with Risperdal as she feels it is stabilizing. His eager to engage in therapy which is being set up for her. Patient remains without any SI or HI. She is returning to live in the home she owns; her daughter and parents live with her and are supportive. She is not in imminent risk for harm to self or others and request for discharge [place]. PLAN: Three day notice q15min checks Risperdal 2 mg q.h.s. Levothyroxine 112 mcg daily collateral needed Patient educated on: diagnosis, medication risk/benefits and therapeutic strategies Informed Consent: understands Reason for contiued inpatient stay Substantial Risk for: stable for discharge Time Spent With Patient Time: Total time managing care of this patient today ____ minutes.
--- NOTE | 2022-07-29 16:42 | PM.PSYDC ---
DS: Providers Provider Date of Service: 07/30/22 Date of admission: 07/21/22 17:19 Date of discharge: 07/30/22 Primary care physician: Unknown Physician Consults: 07/22/22 05:50 Consult to Hospitalist Routine Consulting Provider: Hospitalist Reason For Exam: assess lesions hand, legs, foot DS: Diagnosis Discharge Diagnosis (1) Psychotic disorder: Status: Resolved (2) Post traumatic stress disorder (PTSD): Status: Acute DS: Medications Discharge Medications Home Medications: Previous Rx's Medication Instructions Recorded docusate sodium 100 mg capsule 100 mg PO BID #0 caps 07/29/22 levothyroxine 112 mcg tablet 112 mcg PO DAILY@0600 30 days #30 07/29/22 tabs nicotine (polacrilex) 4 mg gum 4 mg buccal Q2H 30 days #100 ea 07/29/22 risperidone 2 mg tablet 2 mg PO BEDTIME 30 days #30 tabs 07/29/22 Mental Status Exam Mental Status Exam Narrative: Pt is alert and oriented; behavior is cooperative, calm, friendly; dressed in casual attire with adequate grooming and hygiene; mood is described as good and affect congruent; eye contact appropriate; Speech is normal rate, volume and prosody and not pressured; no psychomotor agitation/retardation present; thought process is goal directed and organized; Thought content working on emotional reactivity; no expressed paranoid thinking; denies any SI/HI or any hx of attempt. Denies AVH; Patients insight and judgment are improved and fair. Data Data Completed and Pending Completed studies during hospitalization [Text1]: 07/23/22 07/28/22 07/28/22 22:15 10:30 10:30 COVID-19 (DIMAS) Negative COVID-19 Clin Com See Note Influenza Type A (PCR) NEGATIVE Influenza Type B (PCR) NEGATIVE RSV RNA Qual (PCR) NEGATIVE SARS-CoV-2 RNA (RT-PCR) NEGATIVE S. pyogenes GrpA TRINITY Negative DS: Summary Hospital Course Hospital Course: HPI: pt is a 31 yo female who works for [employer] with hx of ptsd and some disorganized behavior who presents to ED [facility]. Over the last 3-4 weeks, she's presented to ED 3x for bizarre behavior.? -pt has PTSD which is very likely contributing to her symptoms; it's possible she may be having dissociative episodes which would help explain some of her recent behaviors (showing up in her fathers room naked). -pt has some paranoid thinking as well and implies she is experiencing some hallucinations. -Patient works for [employer] and maybe very anxious about disclosing symptoms -likely patient would benefit from SSRI for ptsd; she may also very well benefit from low dose antipsychotic Hospital course: On admission, Patient was pleasant and cooperative but with limited insight and very anxious about taking medications and for the 1st several days of admission, refused.? Little by little her insight improved and she was able to acknowledge she may benefit from ?medication. 07/27 pt tearful; she says she knows she is more confused but does not know why and maintains that all of this seems to have started this past thankgiving. Pt denies SI or HI or AVH, but agrees she is not her regular self. She showed travel writer letter from her employer at [employer] reviewing her past recent odd and concerning behavior and that they are temporarily putting her on unpaid leave. Medication Care Manager discussed with w/ her and other recent concerns for her odd behavior and pt agreed to try Risperdal. hydraulic barker operator reviewed risks/side-effects of this medication, including but not limited to TD and prolactinemia; pt asked questions, understood and agreed trial. She shared that she's been afraid of medication but for the first time, she's more afraid of returning to the community feeling this way. Discussed some of her irritable behaviors on the unit and pt again said it's not normal for her,? but that she is feeling sensitive and at times that staff is not caring, triggering irritable response. 07/28 On Risperdal, Patient reports feeling a little better today.? She did vomit last night but does not think it was due to medication.? Patient says she does feel Risperdal has been helpful and feels a little calmer and more able to avoid upsetting thoughts.? She said it does make her little sleepy and would like it to be made at bedtime if possible.? Patient did put in a 3 day notice and feels like she would like to discharge by the end of the week in order to be with her family for new year's.? Medication Care Manager discussed her recent odd behaviors and patient is ambivalent about how Risperdal might help that but will continue to evaluate. 07/29 Patient continued to reports feeling better overall.? She will continue taking Risperdal at bedtime; although taking Lexapro for few days decided to discontinue it saying she only wants to be on 1 medication at a time for now.? Patient agrees she had odd behaviors that were very out of character for her and only started this past June.? Discussed possibilities which include PTSD and dissociative episodes verses substance induced.? Patient accepts that etiology is not clear for now.? She however is clear that she needs and wants therapy and has issues she needs help and guidance with; appointment pending.? Patient shared that she has a historical troubles with having boundaries with others and wants to improve this.? She wants this post discharge.? Patient 3 day notice is due tomorrow and she feels ready for discharge. Patient feels that she is doing better.? She reports she'll continue with Risperdal as she feels it is stabilizing.?Patient remains without any SI or HI.? She is returning to live in the home she owns; her daughter and parents live with her and are supportive.? She is not in imminent risk for harm to self or others and request for discharge honored. Time spent discussing smoking cessation with patient: 3 to 10 minutes Status at Discharge Functional status at discharge: independent ambulation Overall status at discharge: patient is progressing back to baseline Time Spent with Patient Time attestation: Total time managing care of this patient today ____ minutes. Time spent: Less than 30 minutes Discharge Plan Discharge Anticipated Discharge Date/Time: 07/30/22 13:00 Patient Disposition: Home, Self-Care Discharge Diagnosis: PTSD, chronic with acute exacerbation Referrals: [facility] [Other] - 1 Week (LEFT MESSAGE FOR D/C APPT; PLEASE CALL TO VERIFY DATE AND TIME ) [facility] [Other] - 08/03/22 11:00 am (Intake appointment is scheduled for 11am on August 03) [facility], [facility] [Other] - 08/09/22 11:00 am (Intake appointment for counseling and outpatient psychiatric medication management is scheduled for August 09 at 11am) Discharge Medications: New nicotine (polacrilex) 4 mg gum 4 mg buccal Q2H 30 Days Qty: 100 0RF risperidone 2 mg Tablet 2 mg PO BEDTIME 30 Days Qty: 30 0RF docusate sodium 100 mg Capsule 100 mg PO BID Qty: 0 0RF levothyroxine 112 mcg Tablet 112 mcg PO DAILY@0600 30 Days Qty: 30 0RF No Action trazodone 50 mg tablet 50 mg PO BEDTIME PRN (Reason: sleep) Qty: 30 0RF Discharge Orders: Discharge Order (Routine); Ordered 07/29/22 Ordered By: Amilcar Davies Diet: Regular diet Activity on Discharge: As tolerated Stand Alone Forms: Patient Portal Discharge page, Community Support Care Plan Goals: Maintain mood and safe behaviors Take medications as prescribed Continue to pursue sobriety Practice coping skills Continue with outpatient providers and reach out to them as needed Health Concerns: Mood stability and behaviors Sobriety Hypothyroid Plan of Treatment: Follow up with your PCP, psychiatric provider and other outpatient providers regarding above concerns Take medications as prescribed Assessment: Risk assessment at time of discharge:? Patient was interviewed prior to discharge and found to be fully oriented and without any SI or HI. Patient has insight and demonstrates good judgment in terms of wanting to pursue treatment. Patient is not in imminent risk of harm to self or others and has a safety plan that includes presenting to the closest ER or calling 911 if feeling unsafe.? Patient has been observed closely by nursing and unit staff throughout admission; patient has not engaged in any behaviors that suggest dangerousness to self or others and has demonstrated appropriate behaviors and impulse control Discharge Date/Time: 07/30/22 14:16
[2022-07-29 17:06] VITALS: BP 129/70; PULSE 66; RESP 16; TEMP 36.5; O2SAT 98
[2022-07-29] MEDS: risperiDONE 2 MG TABLET PO (22:36)
[2022-07-30 06:00] VITALS: BP 129/67; PULSE 79; RESP 18; TEMP 36.7; O2SAT 98
[2022-07-30] MEDS: Levothyroxine Sodium 112 MCG TABLET PO (06:10)
[2022-07-30] MEDS: Mineral Oil/Petrolatum,White 106 GM Tube 1 APPL TOPICAL (08:11)
[2022-07-30] MEDS: Docusate Sodium 100 MG CAPSULE PO (08:11)
[2022-07-30 10:18] LABS: COVID-19 Test Negative (Negative); IDNOW Serial# BCCEAD1C
== END 2022-07-30 14:16 | disposition home or self-care (01) | DRG 751 ==
LOC: HO.ED 11:08 → HO.PM5 18:20
PROVIDERS: Clinical Nurse Specialist Psychiatric/Mental Health, Adult; Physician Assistant; Psychiatry & Neurology Psychiatry; Admitting Provider Psychiatry & Neurology Psychiatry; Emergency Provider Student in an Organized Health Care Education/Training Program; Visit Provider Psychiatry & Neurology Psychiatry
DX: F29 Unspecified psychosis not due to a substance or known physiological condition (principal); D72.829 Elevated white blood cell count, unspecified; L40.9 Psoriasis, unspecified; F17.210 Nicotine dependence, cigarettes, uncomplicated; F43.10 Post-traumatic stress disorder, unspecified; Z20.822 Contact with and (suspected) exposure to COVID-19; Z71.6 Tobacco abuse counseling; Z88.8 Allergy status to other drugs, medicaments and biological substances; Z79.890 Hormone replacement therapy; Z79.899 Other long term (current) drug therapy
CPT/HCPCS: 0241U; 36415; 80053; 80061; 80307; 81003; 81025; 83036; 85025; 87635; 87651; 99285; J2060

== ENCOUNTER 2022-08-24 12:30 | Outpatient (RCR) | payer OTHER, SELFPAY ==
[2022-08-04 11:07] VITALS: BP 128/70; PULSE 80; TEMP 36.6
[2022-08-04 11:11] VITALS: BMI 46.3
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
--- NOTE | 2022-08-05 15:49 | HO.PHPIOP ---
Case opened in Treatment Team
--- NOTE | 2022-08-05 16:14 | HO.PHPIOP ---
Case opened in treatment team.
[2022-08-06 13:56] LABS: Amphetamine Screen Urine Not Detected (Not Detect); Barbiturates, Urine Not Detected (Not Detect); Benzodiazepines Screen Urine Not Detected (Not Detect); Cannabinoid Screen Urine Not Detected (Not Detect); Cocaine Screen Urine Not Detected (Not Detect); Fentanyl, urine Not Detected (Not Detect); Opiate Screen Urine Not Detected (Not Detect); Phencyclidine Screen Urine Not Detected (Not Detect)
--- NOTE | 2022-08-10 17:07 | P.PNPSP_ITS ---
Subjective Subjective Date of Service: 08/10/22 Reason For Visit: PTSD Medical Problems Affecting Mental Status: No Interim History: Describes mood as ?okay ?. Some paranoia, nightmares, hypervigilance. Rumination, focused on fear of having a spiked drink in bars. No SI, no safety concerns. Stop taking risperidone last Tuesday. Trazodone has been helpful in falling asleep. Medication Compliance: Intermittent Side effects from medications: No Attending Groups: Yes Review of Systems Acute medical concerns: No Medical Review of Systems: unchanged Review of Systems Review of Systems Yes all other systems are reviewed and are negative Constitutional: Reports no additional constitutional complaints Mental Status Exam Mental Status Exam Patient Appearance: Appropriate Patient Orientation: Person, Place, Time and Situation Level of Consciousness: Appropriate Patient Behavior: Appropriate, Cooperative and Good Eye Contact Mood Description: Appropriate Affect Description: Anxious Patient Cognition Impaired: No Ability to Follow Directions: Good Speech Pattern: Clear and Perseverating Memory Description: Intact Hallucinations: None (denies) Delusions: Paranoid Ideation Perceptual Disturbances: Depersonalization Thought Process: Rumination Thought Content: positive for Obsessional Thoughts, positive for Circumstantial and positive for Disorganized Depressive Symptoms: Increased Anxiety and Difficulty Concentrating Judgement: Fair Diagnostics Vital Signs (24Hr): BMI result Body Mass Index 46.3 Assessment & Plan Assessment & Plan (1) Post traumatic stress disorder (PTSD): Status: Acute Code(s): F43.10 - Post-traumatic stress disorder, unspecified Assessment and Plan: Describes mood as ?okay ?. Some paranoia, nightmares, hypervigilance. Rumination, focused on fear of having a spiked drink in bars. Continues to go to bars, states that she orders non alcoholic drinks. No SI, no safety concerns. Stop taking risperidone last Tuesday. Reviewed medication instructions with patient, stressed importance of taking risperidone as directed. Plan 1. Continue with current [facility] plan of care. 2. Patient instructed to take medications as directed. 3. Follow-up as per protocol. Patient educated on: diagnosis, medication risk/benefits and therapeutic strategies Informed Consent: further education needed Reason for contiued partial hosp. stay Substantial Risk for: inability to function and rapid decompensation Certification I certify that partial hospital treatment is medically necessary due to the symptoms and problems resulting from the patient's mental illness and the failure to treat the patient at the partial hospital level of care would likely result in the patient requiring inpatient psychiatric care which could not be prevented at a less intensive level of care. Total time managing care of this patient today __20__ minutes. Discharge Plan Discharge Attending provider: Lv Ayala Medications: New trazodone 50 mg tablet 50 mg PO BEDTIME PRN (Reason: sleep) Qty: 30 0RF No Action nicotine (polacrilex) 4 mg gum 4 mg buccal Q2H 30 Days Qty: 100 0RF risperidone 2 mg Tablet 2 mg PO BEDTIME 30 Days Qty: 30 0RF docusate sodium 100 mg Capsule 100 mg PO BID Qty: 0 0RF levothyroxine 112 mcg Tablet 112 mcg PO DAILY@0600 30 Days Qty: 30 0RF
--- NOTE | 2022-08-11 13:56 | HO.PHPIOP ---
I met with pt and reviewed treatment plan with her.
--- NOTE | 2022-08-17 10:23 | P.PNPSP_ITS ---
Subjective Subjective Date of Service: 08/17/22 Reason For Visit: PTSD Medical Problems Affecting Mental Status: No Interim History: Reports taking medications as prescribed. Describes mood as ?I am okay ?. Denies any SI, any current anxiety or depression. Reports PTSD symptoms at night, including flashbacks, intrusive memories at times, feeling tearful. Request return to work note. Medication Compliance: Yes Side effects from medications: No Attending Groups: Yes Review of Systems Acute medical concerns: No Medical Review of Systems: unchanged Review of Systems Review of Systems Yes all other systems are reviewed and are negative Constitutional: Reports no additional constitutional complaints Mental Status Exam Mental Status Exam Narrative: Patient more focused. Patient Appearance: Appropriate Patient Orientation: Person, Place, Time and Situation Level of Consciousness: Appropriate Patient Behavior: Appropriate, Cooperative and Good Eye Contact Mood Description: Appropriate Affect Description: Appropriate Patient Cognition Impaired: No Ability to Follow Directions: Good Speech Pattern: Clear and Perseverating Memory Description: Intact Hallucinations: None (denies) Delusions: Not Present Perceptual Disturbances: Depersonalization Thought Process: Intact Thought Content: positive for Intact and positive for Circumstantial Judgement: Good Diagnostics Vital Signs (24Hr): BMI result Body Mass Index 46.3 Assessment & Plan Assessment & Plan (1) Post traumatic stress disorder (PTSD): Status: Acute Code(s): F43.10 - Post-traumatic stress disorder, unspecified Assessment and Plan: Reports taking medications as prescribed, including risperidone. Discussed importance of continuing risperidone daily. Patient stated she understood. Describes mood as ?I am okay ?. Circumstantial speech noted, started talking about how she used to go out at night every night and go to the bars after her daughter and parents were asleep. Reviewed this behavior. States that she no longer engages in this, as she realizes it is not safe behavior behavior. Denies any SI, any current anxiety or depression. Denies any mood lability, appears more stable during encounter. Reports PTSD symptoms at night, including flashbacks, intrusive memories at times, feeling tearful. Reports that she realizes this is related to her tra rukhsana, and that she will need to work on this going forward, practicing healthy coping skills and ways to process this. Plan 1. Continue with current medications as prescribed. 2. Work note provided. 3. Follow-up as per protocol. Patient educated on: diagnosis, medication risk/benefits and therapeutic strategies Informed Consent: understands Reason for contiued partial hosp. stay Substantial Risk for: inability to function Certification I certify that partial hospital treatment is medically necessary due to the symptoms and problems resulting from the patient's mental illness and the failure to treat the patient at the partial hospital level of care would likely result in the patient requiring inpatient psychiatric care which could not be prevented at a less intensive level of care. Total time managing care of this patient today ____ minutes. Discharge Plan Discharge Attending provider: Lv Ayala Medications: New trazodone 50 mg tablet 50 mg PO BEDTIME PRN (Reason: sleep) Qty: 30 0RF No Action nicotine (polacrilex) 4 mg gum 4 mg buccal Q2H 30 Days Qty: 100 0RF risperidone 2 mg Tablet 2 mg PO BEDTIME 30 Days Qty: 30 0RF docusate sodium 100 mg Capsule 100 mg PO BID Qty: 0 0RF levothyroxine 112 mcg Tablet 112 mcg PO DAILY@0600 30 Days Qty: 30 0RF
--- NOTE | 2022-08-19 11:40 | P.PNPSP_ITS ---
Subjective Subjective Date of Service: 08/19/22 Reason For Visit: PTSD Medical Problems Affecting Mental Status: No Interim History: Describes mood as ?good ?. Stable affect, much improved. No AH, VH. No SI, HI. No safety concerns. Feels ready for discharge from [facility] today. Medication Compliance: Yes Side effects from medications: No Attending Groups: Yes Review of Systems Acute medical concerns: No Medical Review of Systems: unchanged Review of Systems Review of Systems Yes all other systems are reviewed and are negative Constitutional: Reports no additional constitutional complaints Mental Status Exam Mental Status Exam Narrative: Patient more focused. Patient Appearance: Appropriate Patient Orientation: Person, Place, Time and Situation Level of Consciousness: Appropriate Patient Behavior: Appropriate, Cooperative and Good Eye Contact Mood Description: Appropriate Affect Description: Appropriate Patient Cognition Impaired: No Ability to Follow Directions: Good Speech Pattern: Clear Memory Description: Intact Hallucinations: None Delusions: Not Present Thought Process: Intact Thought Content: positive for Intact Judgement: Good Diagnostics Vital Signs (24Hr): BMI result Body Mass Index 46.3 Assessment & Plan Assessment & Plan (1) Post traumatic stress disorder (PTSD): Status: Acute Code(s): F43.10 - Post-traumatic stress disorder, unspecified Assessment and Plan: Describes mood as ?good ?. No current PTSD symptoms. Has found groups helpful. Stable affect, much improved. Has been taking medications as prescribed, no concerns. Patient encouraged to continue medication adherence, so as to prevent any decompensation. She stated she understood. No AH, VH. No SI, HI. No safety concerns. Feels ready for discharge from [facility] today. Return to work letter with no restrictions provided. Plan 1. Patient appears stable for discharge from [facility] at this time. 2. Patient provided with letter for return to work with no restrictions. 3. Patient to follow up with outpatient providers going forward. Patient educated on: diagnosis, medication risk/benefits and therapeutic strategies Informed Consent: understands Reason for contiued partial hosp. stay Substantial Risk for: stable for discharge Certification I certify that partial hospital treatment is medically necessary due to the symptoms and problems resulting from the patient's mental illness and the failure to treat the patient at the partial hospital level of care would likely result in the patient requiring inpatient psychiatric care which could not be prevented at a less intensive level of care. Total time managing care of this patient today __20__ minutes. Discharge Plan Discharge Attending provider: Lv Ayala Medications: New trazodone 50 mg tablet 50 mg PO BEDTIME PRN (Reason: sleep) Qty: 30 0RF No Action nicotine (polacrilex) 4 mg gum 4 mg buccal Q2H 30 Days Qty: 100 0RF risperidone 2 mg Tablet 2 mg PO BEDTIME 30 Days Qty: 30 0RF docusate sodium 100 mg Capsule 100 mg PO BID Qty: 0 0RF levothyroxine 112 mcg Tablet 112 mcg PO DAILY@0600 30 Days Qty: 30 0RF Stand Alone Forms: Patient Portal Discharge page Patient Education: Post Traumatic Stress Disorder (DC), Psychotic Disorder (DC)
--- NOTE | 2022-08-19 15:51 | HO.PHPIOP ---
I called and left a message for Claudia Solomon, therapist at [facility], letting her know about pt's successful discharge from [facility], and about her clinilcal presentation at discharge.
--- NOTE | 2022-08-23 16:13 | HO.PHPIOP ---
Case opened in treatment team.
== END 2022-08-27 12:42 | disposition home or self-care (01) ==
LOC: HO.PHPA 12:30
PROVIDERS: Nurse Practitioner Psychiatric/Mental Health; Visit Provider Psychiatry & Neurology Psychiatry
DX: F43.10 Post-traumatic stress disorder, unspecified (principal); F29 Unspecified psychosis not due to a substance or known physiological condition
CPT/HCPCS: 80307; 90791; 90853